=== PATIENT | female | born 1945 | race Caucasian/White ===

== ENCOUNTER 2016-12-19 14:19 | Inpatient (IN) ==
[2016-12-19] MEDS ORDERED: D5 1/2 NS + KCL 10 MEQ 1,000 ML IV SCH (14:53)
[2016-12-19] MEDS ORDERED: PHENERGAN IV PRN (15:00)
[2016-12-19] MEDS ORDERED: SODIUM CHLORIDE 0.9% INJ PRN (15:00)
--- NOTE | 2016-12-19 15:26 | EKG Report ---
Test Performed on : 12/19/2016 3:07:12 PM Test Reason : pre op Blood Pressure : / mmHG Vent. Rate : 073 BPM Atrial Rate : 073 BPM P-R Int : 116 ms QRS Dur : 078 ms QT Int : 390 ms P-R-T Axes : 061 023 002 degrees QTc Int : 429 ms Normal sinus rhythm. Nonspecific ST abnormality Abnormal ECG No previous ECGs available Confirmed by Nga TAVERAS, Parish Robledo ([id number]) on 12/20/2016 9:43:47 PM
[2016-12-19 16:00] LABS: MANUAL DIFF NEEDED? NO
[2016-12-19 16:11] LABS: BASO% 0.1 % (0.0-0.8); EOS# 0.03 X1000 (0.0-0.7); EOS% 0.3 % (0.0-10.0); HEMATOCRIT 41.9 % (37.0-47.0); HEMOGLOBIN 14.1 g/dL (12.0-16.0); IMM GRAN# 0.02 X1000 (0.0-0.04); IMM GRAN% 0.2 % (0.0-0.5); LYMPH% 13.7 % (20.5-51.1); MCHC 33.7 g/dL (33-37); MCV 92.1 FL (81-99); MONO# 0.83 X1000 (0.11-0.59); MONO% 9.5 % (1.7-9.3); MPV 10.5 FL (7.4-10.4); NEUT% 76.2 % (42.2-75.2); PLT 262 X1000 (130-400); RBC 4.55 XMIL (4.2-5.4)
[2016-12-19] MEDS: LEVAQUIN 750 MG/D5W 750 MG/150 ML IVPB IV SCH (16:31)
[2016-12-19 16:33] LABS: AGAP 19; ALBUMIN 4.6 g/dL (3.5-5.0); ALKALINE PHOSPHATASE 33 U/L (32-104); BUN 24 mg/dL (8-22); CALCIUM 10.5 mg/dL (8.8-10.2); CHLORIDE 93 mmol/L (98-107); COSMO 285; GOT 26 U/L (10-30); GPT 15 U/L (10-36); LIPASE 26 U/L (13-60); POTASSIUM 3.6 mmol/L (3.5-5.1); SODIUM 141 mmol/L (136-145); TCO2 29 mmol/L (25-35); TOTAL BILIRUBIN 0.93 mg/dL (0.20-1.00)
[2016-12-19] MEDS: DEMEROL IV PRN ×2 (17:34→21:47)
--- NOTE | 2016-12-19 20:51 | HISTORY AND PHYSICAL ---
CHIEF COMPLAINT: Abdominal pain and intractable nausea. PRESENT ILLNESS: This is the first recent [facility] admission for this 71-year-old, white female with upper abdominal discomfort and nausea for a little over a week. Her nausea became worse last night and this morning. She has had no fever. Gallbladder ultrasound was ordered as an outpatient this morning. This revealed multiple gallstones. There was no significant thickening of the gallbladder wall. Common duct was normal size. Discussion was made with the patient and decision to come in for hydration and surgical consultation with possible laparoscopic cholecystectomy. There is history of vaginal hysterectomy and left ovarian cyst removal. She has had no upper abdominal surgery except EGD for ulcer. She takes no aspirin or anticoagulants. PAST MEDICAL HISTORY: Surgery as above. PRESENT MEDICATIONS: Zofran 4 mg p.o. q.4 hours p.r.n. nausea, Bentyl 20 mg t.i.d. ALLERGIES: None known. REVIEW OF SYSTEMS: Vomiting several times since midnight and living specialist. She tried to take some nausea tablets, but was unable to hold them down. She has had almost no p.o. intake today. FAMILY HISTORY: Unremarkable. SOCIAL HISTORY: She is and lives with her . She denies smoking or alcohol usage. PHYSICAL EXAMINATION: VITAL SIGNS: Temperature 97.8 degrees, heart rate 74, respirations 16, blood pressure 124/77, O2 saturation on room air 98%. GENERAL: Malaise with abdominal discomfort and nausea. HEENT: Pupils equal, round, and reactive to light. Tympanic membranes without inflammation. Pharynx benign with no erythema or exudate. NECK: Supple with no mass or lymphadenopathy. There is epigastric tenderness and normal bowel sounds. EXTREMITIES: No cyanosis, clubbing, or edema. RECTAL AND GENITALIA: Deferred. NEUROLOGICAL: Grossly intact. IMPRESSION: Gallstones, gastritis, volume depletion. PLAN: Admit for hydration, control of nausea and pain, and for surgical consultation. cc: Adrian Doan MD
--- NOTE | 2016-12-19 20:58 | CONSULTATION ---
DATE OF CONSULTATION: 12/19/2016 REQUESTING PHYSICIAN: Adrian Doan MD. REASON FOR CONSULTATION: Symptomatic cholelithiasis. HISTORY OF PRESENT ILLNESS: A 71-year-old female presenting with a one-week history of right upper quadrant epigastric pain. She reports she has had previous episodes in the past but never to this intensity. This intensity brought her to see her primary care physician, Dr. Doan, who evaluated her. He sent her for an ultrasound and labs. The ultrasound suggests she had significant stone burden in her gallbladder which likely represents the reason for her pain. She was admitted by her primary care physician. She says she is feeling somewhat better now with the pain medicine and rehydration but otherwise still reports epigastric right upper quadrant pain. It is described as sharp and in the right upper quadrant. PAST MEDICAL HISTORY: Hypertension and hypercholesterolemia. PAST SURGICAL HISTORY: Hysterectomy and an ovarian cyst removal. MEDICATIONS: Blood pressure medication and fenofibrate. Patient is unsure of the name of the blood pressure medicine. ALLERGIES: None. FAMILY HISTORY: Positive for leukemia and colon cancer. SOCIAL HISTORY: Patient denies alcohol, tobacco or illicit drugs. REVIEW OF SYSTEMS: A full 10 point review of systems obtained, negative as specified in HPI. PHYSICAL EXAMINATION: Vital Signs: Patient is currently afebrile. Her vital signs have been stable. General Examination: In no acute distress. Alert, interactive, female, looks stated age. HEENT: Normocephalic, atraumatic. Pupils equal, round, reactive to light. Mucous membranes moist. Oropharynx benign. Neck: Supple. Trachea midline. Cardiovascular: Regular rate and rhythm. Lungs: Grossly clear. Abdomen: Soft, nondistended, tender to palpation at the epigastric, right upper quadrant. No peritoneal signs at this time. Extremities: Moves all extremities. Neurologic: Grossly intact. Skin: No signs of jaundice. Vascular: All extremities perfused. LABORATORY: White blood cell count 8, hematocrit 41, platelet count 262,000. CMP reviewed and grossly within normal limits except for calcium of 10.5. Ultrasound report reviewed. Patient does have cholelithiasis but no signs of acute cholecystitis. Her common bile duct is at the upper range of normal at 6. ASSESSMENT/PLAN: A 71-year-old, female with symptomatic cholelithiasis. Symptomatic cholelithiasis. At this time we will plan on admitting the patient, rehydrating her as done by Dr. Doan. We will plan on surgical intervention with laparoscopic cholecystectomy in the morning. The risks, benefits and alternatives for the procedure were discussed. All questions were answered. We will keep her NPO and resuscitate her overnight with plan on intervention in the morning. This was all discussed with the family. cc: MD Adrian Coffman MD
[2016-12-20] MEDS: D5 1/2 NS + KCL 10 MEQ 1,000 ML IV SCH ×4 (00:28→15:23)
--- NOTE | 2016-12-20 06:17 | PROGRESS NOTE ---
DATE: 12/20/2016 SUBJECTIVE: Patient says she is doing okay, no major issues. OBJECTIVE: Vital Signs: Patient is currently afebrile. Her vital signs are stable. General: No acute distress. Up and ambulating. HEENT: Normocephalic, atraumatic. Pupils are round, reactive to light. Mucous membranes moist. Oropharynx benign. Neck: Supple. Trachea midline. Cardiovascular: Regular rate and rhythm. Lungs: Grossly clear. Abdomen: Soft. Mild discomfort right upper quadrant epigastric. No peritoneal signs. Extremities: Moves all extremities. Neurologic: Grossly intact. Skin: No signs of jaundice. Vascular: All extremities perfused. LABORATORY: Currently pending for this morning. ASSESSMENT AND PLAN: A 71-year-old female with likely symptomatic cholelithiasis. Symptomatic cholelithiasis. At this time, we will plan on surgical intervention this morning. The risks, benefits, and alternatives for the procedure were discussed. All questions answered. cc: MD Adrian Coffman MD
[2016-12-20 06:42] LABS: AGAP 11; ALBUMIN 3.6 g/dL (3.5-5.0); ALKALINE PHOSPHATASE 26 U/L (32-104); BUN 18 mg/dL (8-22); CALCIUM 8.6 mg/dL (8.8-10.2); CHLORIDE 102 mmol/L (98-107); COSMO 283; GOT 23 U/L (10-30); GPT 12 U/L (10-36); POTASSIUM 3.7 mmol/L (3.5-5.1); SODIUM 140 mmol/L (136-145); TCO2 27 mmol/L (25-35); TOTAL BILIRUBIN 0.53 mg/dL (0.20-1.00); TOTAL PROTEIN 6.7 g/dL (6.3-8.3)
--- NOTE | 2016-12-20 07:38 | PROGRESS NOTE ---
DATE: 12/20/2016 PHYSICAL EXAMINATION: Vital signs stable with temperature 97.9 degrees, heart rate 74, respirations 16, blood pressure 113/69. O2 saturation on room air 98%. LABORATORY: Hemoglobin 14.1, hematocrit 41.9, white blood count 8700 with 76% neutrophils. Sodium 140, potassium 3.7, BUN 18, creatinine 0.7. Glucose 126. Calcium 8.6. Liver functions normal. Amylase 25, lipase 26. ASSESSMENT: Patient is feeling better with no abdominal pain this morning. She has no nausea at the present time and had no vomiting overnight. PLAN: Laparoscopic cholecystectomy by Dr. Levin. cc: Adrian Doan MD
[2016-12-20] MEDS ORDERED: SODIUM CHLORIDE 0.9% ONE (08:41)
[2016-12-20] MEDS ORDERED: MARCAINE 0.25% PF/EPI 1:200,000 ONE (08:41)
[2016-12-20] MEDS ORDERED: LR 1,000 ML ONE ×2 (08:41→10:25)
[2016-12-20] MEDS: MORPHINE ONE ×3 (09:39→09:50)
[2016-12-20] MEDS ORDERED: FENTANYL ONE (09:42)
[2016-12-20] MEDS ORDERED: DIPRIVAN 1% ONE (09:42)
[2016-12-20] MEDS ORDERED: ZOFRAN ONE ×2 (09:54→10:25)
[2016-12-20] MEDS ORDERED: BUPRENEX ONE (09:58)
[2016-12-20] MEDS ORDERED: NORCO-10 PO PRN (10:22)
[2016-12-20] MEDS ORDERED: NEOSTIGMINE ONE (10:25)
[2016-12-20] MEDS ORDERED: QUELICIN (DOSE) ONE (10:25)
[2016-12-20] MEDS ORDERED: ROBINUL ONE (10:25)
[2016-12-20] MEDS ORDERED: ZEMURON ONE (10:25)
[2016-12-20] MEDS ORDERED: XYLOCAINE-MPF 2% ONE (10:25)
--- NOTE | 2016-12-20 10:59 | OPERATIVE NOTE ---
PROCEDURE DATE: 12/20/2016 PREOPERATIVE DIAGNOSIS: Cholelithiasis. POSTOPERATIVE DIAGNOSIS: Cholelithiasis. PROCEDURE PERFORMED: Laparoscopic cholecystectomy. SURGEON: Pasquale Levin MD HEALTH INFORMATION SYSTEMS TECHNICIAN: None. ANESTHESIA: General endotracheal. INTRAOPERATIVE FINDINGS: As above. COMPLICATIONS: None at the time of dictation. ESTIMATED BLOOD LOSS: 10 mL. SPECIMEN REMOVED: Gallbladder and its contents. BRIEF HISTORY: The patient is a 71-year-old female presenting with symptoms suggestive of gallbladder disease. The risks, benefits, and alternatives for the procedure were discussed. All questions were answered. DESCRIPTION OF PROCEDURE: After an informed consent was obtained, the patient brought to the operative theatre and transferred to the operating room table and placed in the supine position. General tracheal anesthesia was then performed without complication. A formal time out was then performed confirming the patient, date, procedure, and all were in agreement at that time. After the abdomen was prepped and draped in a sterile fashion after the time out, we made an infraumbilical incision. Using Optiview technique, we inserted an 11 mm trocar and connected. Insufflation and pneumoperitoneum were achieved. Under direct visualization, we placed 3 more trocars, all 5 mm, 1 in the subxiphoid and 2 in the right upper quadrant. Using these, the gallbladder was identified. It was very thin-walled, and grasping the gallbladder itself made a small hole in the gallbladder. We were able to retract it cephalad. There were some adhesions to suggest she had previous cholecystitis before. We were able to dissect out the cystic duct and the cystic artery to achieve the critical view of safety. We doubly clipped and ligated the cystic duct and cystic artery, dissected the gallbladder off the gallbladder fossa, placed it into an Endobag and brought it out through the infraumbilical incision. We then irrigated out the abdomen copiously until the suctioned fluid was clear. We reexamined the gallbladder fossa, and there was no active drainage of bile. No bleeding. The clips were in good position. We then closed the infraumbilical incision with a 0 Vicryl and Jose-Umesh device with good results. We then removed all trocars, disconnected insufflation, and pneumoperitoneum was released. We then closed all skin incisions with 4-0 Monocryl. The patient tolerated the procedure well and was transferred to the recovery room in stable condition. cc: MD Adrian Coffman MD
[2016-12-20] MEDS: DEMEROL IV PRN (14:22)
[2016-12-20] MEDS: LEVAQUIN 750 MG/D5W 750 MG/150 ML IVPB IV SCH (15:52)
[2016-12-20 16:40] VITALS: BP 123/66
--- NOTE | 2016-12-20 18:42 | DISCHARGE SUMMARY ---
ADMISSION DATE: 12/19/2016 DISCHARGE DATE: 12/20/2016 FINAL DIAGNOSES: Cholelithiasis, cholecystitis, acute gastritis. CONSULTATION: Pasquale Levin MD. SURGICAL PROCEDURE: Laparoscopic cholecystectomy. HISTORY: This is the first recent [facility] admission for this 71-year-old, white female who presented with intractable vomiting and abdominal pain. She was hospitalized for hydration and evaluation, also a surgical consultation. Gallbladder ultrasound the morning of admission showed cholelithiasis. Common duct was normal size and gallbladder wall was thin. Her only medications at home were for nausea and constipation, Zofran and Amitiza. INITIAL LABORATORY: Hemoglobin 14.1, hematocrit 41.9, white blood count 8700 with 76% neutrophils. Sodium 141, potassium 3.6, BUN 24, creatinine 0.8. Calcium 10.5, bilirubin 0.9, AST 26, ALT 15, amylase 25, lipase 26. HOSPITAL COURSE: She underwent laparoscopic cholecystectomy this morning without complications. She had eaten this evening and has no nausea. There is mild abdominal discomfort expected from the procedure. She is discharged home on tramadol p.r.n. pain. She is to return to the office in 1 week for followup. cc: Adrian Doan MD
[2016-12-20] MEDS ORDERED: PERIDEX MT SCH (21:00)
== END 2016-12-20 18:31 | disposition home or self-care (01) ==
LOC: DIRADM 14:19 → 4N 15:14
PROVIDERS: ADMIT Family Medicine; ATTEND Family Medicine